=== PATIENT | female | born 1960 | race Caucasian/White ===

== ENCOUNTER 2016-07-03 11:00 | Inpatient (IN) | payer MEDICARE, MEDICAID ==
[~2016-07-03] VITALS: Ht 157.5 cm; Wt 118.9 kg
--- NOTE | ~2016-07-03 | OR ---
PATIENT'S NAME: S[facility]Y [facility] AGE: 55 Y [address] ROOM: [address] [address] LOCATION: [facility] ADMIT DATE: 07/25/2016 OR/Procedure Report DISCHARGE DATE: FAMILY PHYSICIAN: Torri Bills MD ATTENDING PHYSICIAN: Ulises Ruggiero SURGEON: Ulises Ruggiero MD TALENT ACQUISITION OPERATIONS MANAGER: DATE OF PROCEDURE: 07/25/2016 PREOPERATIVE DIAGNOSIS: Osteoarthritis, right knee. POSTOPERATIVE DIAGNOSIS: Osteoarthritis, right knee. OPERATION: Cemented tricompartmental total knee replacement with custom iTotal components and a 32 mm patellar button. ANESTHESIA: Subarachnoid block. INDICATIONS: This is a 55-year-old female with clinical and radiographic evidence of varus osteoarthritis of the right knee, who was no longer getting relief from non-operative treatment. DESCRIPTION OF PROCEDURE: The patient was brought to the operating room and when a satisfactory spinal anesthesia had been established, her right lower extremity was prepped and draped in an aseptic manner. The skin overlying the incision was injected with Sudeep mix and an anterior incision made and carried down through the subcutaneous fat. The quadriceps were injected with Sudeep mix and as was the medial capsule. The quadriceps splitting approach was then utilized such that the patella could be dislocated laterally. Bleeding was controlled with the Aquamantys. The patella was measured at 22 mm and cut down to 15 mm. The 32 mm patellar button appeared to fit the best and the 3 fixation holes were drilled. The cut surface of the patella was covered with a metal plate. The distal femur was exposed and the F1 jig positioned and it appeared to fit well. Subchondral bone was exposed and the F2 and F3 jigs were placed. The provisional fixation holes were drilled in the F2 jig and the F3 cutting block was pinned in place. The distal femoral cut was made using the reciprocating saw for the offset and the sagittal saw for the distal femoral cut. Flatness was checked at the T2 and F4 was pinned onto the distal femur. The anterior femoral cut was made and it was satisfactory, so the posterior femoral and anterior chamfer chapter cuts were made and the 2 lug holes were drilled for the femoral component. The F5 block was impacted home and the 2 posterior femoral chamfer cuts were made on each posterior femoral condyle. The tibia articular surface was then exposed and the subchondral bone exposed. The T1 jig was fitted onto the tibia and pinned in place. The tibial cut was made. Posterior capsule was then injected with Sudeep mix and PATIENT'S NAME: SONY [facility] AGE: 55 Y [address] ROOM: [address] [address] LOCATION: [facility] ADMIT DATE: 07/25/2016 OR/Procedure Report DISCHARGE DATE: FAMILY PHYSICIAN: Torri Bills MD ATTENDING PHYSICIAN: Ulises Ruggiero Aquamantys used for hemostasis. The T2 block was placed and the knee extended fully, so the M6LA tibial template was positioned on the cut surface of the tibia and pinned in place, and the centering hole drilled through the bushing, and the plunger impacted home. A trial reduction was performed with M6LA and the trial femoral component and the knee extended fully and was stable to varus and valgus stressing. Cut bony surfaces were irrigated and dried while cement was mixed. The tibial tray was cemented into place 1st and excess cement removed while soft with a [place] elevator. The M6 and LA spacers were impacted home. The femoral and patellar components were then cemented into place and excess cement removed while soft with a [place] elevator and with an osteotome and mallet once it was set. When the cement had set, the knee was taken through range of motion and the patella tracked well without any thumb pressure. The knee was stable to varus and valgus stressing and extended fully. The wound was irrigated copiously with saline and closed in layers using a running #1 Vicryl for the quadriceps tendon. The medial capsule was closed with a running #1 Vicryl. The subcutaneous fat was closed with running 2-0 Vicryl and the skin closed with skin shyla. Dressings were applied and the patient sent to the recovery area having tolerated the procedure well. MD PAULO LIMA/kvng /[id number] d: 07/25/16 1339 t: 08/01/16 0953, OPERATIVE SUMMARY
[~2016-07-03 11:00] MED LIST: AMBIEN5 MG PO; ASPIRIN EC81 MG PO; CALCIUM 600 +1 EAC5 PO; CATAPRES0.1 MG PO; CLARITIN10 MG PO; DITROPAN XL15 MG PO; FLONASE 50 MCG/16 GM NOSE; K-TAB ER20 MEQ PO; LASIX40 MG PO; LEXAPRO20 MG PO; LIPITOR20 M1 PO; MOBIC15 MG PO; MOTRIN600 MG PO; NORVASC5 MG PO; PRILOSEC20 MG PO; PROVENTIL OR V6.7 GM INH; VOLTAREN 1% GE100 GM TOP; XANAX0.5 MG PO
--- NOTE | 2016-07-25 18:43 | NUR ---
Significant Event: BACK AT 1030, CSM GOOD TO RIGHT LEG. HAD BLOCK IN KNEE. RACH WRAP D/I. HAD DILAUDID 2 MG TAB X2 LAST AT 1430...HAS COPD AND SLEEP APNEA HISTOURY, RT AWARE OF THIS. HAS BEEN TO COMMODE VOIDED X1... Follow up:
--- NOTE | 2016-07-26 04:43 | NUR ---
POD#1 RIGHT TKA, DSG CHANGED AT HS DUE TO INCONTINENCE, MELIPEX MARKED AND RACH WRAP APPLIED, GOOD CSMS, UP WITH SBA/FWW/GAIT BELT, LFA PIV SALINE LOCKED, VS WNL, PAIN CONTROLLED WITH DILAUDID LD@0300 AND WILL REASSESS BEFORE SHIFT CHANGE, ETCO2 ON ALL NIGHT DUE TO HX OF SLEEP APNEA AND REMAINED ON 1L PER NC THRU THE NIGHT TO MAINTAIN SATS OVER 90%, FAMILY IN ROOM. DC HOME ON DISCHARGE.
[2016-07-26 05:43] LABS: HEMATOCRIT 34.8 % (33.0-46.0); HEMOGLOBIN 11.3 g/dL (10.0-15.0)
--- NOTE | 2016-07-26 11:00 | NUR ---
Introduced self/role to patient and her significant other Gautam. Plan is to return home. Does not think she will need anything. Listed off all the DME they already have. Gautam will be around to assist her and she has a son. Added my name to the marker board. Will continue to follow.
[2016-07-26] MEDS ORDERED: ECOTRIN325 MG PO (14:56)
[2016-07-26] MEDS ORDERED: COLACE100 MG PO (14:59)
[2016-07-26] MEDS ORDERED: NICODERM / HABIT7 MG TRANS (15:05)
[2016-07-26] MEDS ORDERED: MIRALAX17 GM PO (15:08)
[2016-07-26] MEDS ORDERED: VALIUM5 MG PO (15:12)
[2016-07-26] MEDS ORDERED: "\\\"PREP SPRAY\\\"-TIN4 OZ" (15:12)
[2016-07-26] MEDS ORDERED: DILAUDID 2MG(HYD2 MG PO ×2 (15:13→15:14)
--- NOTE | 2016-07-26 15:46 | NUR ---
Dismissal Instructions: Ambulates with SBA and walker. Dressing changed by Den TORRE this am, C/D/I at this time. Ice at all times. Voids without difficulty. IV d/cd. CSM WNL. Dilaudid 2 mg at 1534, Tylenol 1000mg at 1052, Valium 2.5 mg at 1230. Tatiana education given with dismissal instructions, patient and state understanding. Dismissed to home.
== END 2016-07-26 15:50 | disposition disaster alternative care site (69) | DRG 470 ==
LOC: EDSTATUS 11:00 → G3N 11:00
PROVIDERS: ADMIT Orthopaedic Surgery
PROC: 0SRC0J9 Replacement of Right Knee Joint with Synthetic Substitute, Cemented, Open Approach (ICD-10-PCS; principal; 2016-07-25)
DX: M17.11 Unilateral primary osteoarthritis, right knee (principal); Z68.42 Body mass index [BMI] 45.0-49.9, adult; I10 Essential (primary) hypertension; F17.210 Nicotine dependence, cigarettes, uncomplicated; J44.9 Chronic obstructive pulmonary disease, unspecified; Z85.3 Personal history of malignant neoplasm of breast; G47.33 Obstructive sleep apnea (adult) (pediatric); K21.9 Gastro-esophageal reflux disease without esophagitis; Z85.43 Personal history of malignant neoplasm of ovary; F41.9 Anxiety disorder, unspecified; F32.9 Major depressive disorder, single episode, unspecified; N39.3 Stress incontinence (female) (male); Z71.6 Tobacco abuse counseling; E66.01 Morbid (severe) obesity due to excess calories
CPT/HCPCS: A9270; C1713; C1776; J0171; J0690; J0735; J1885; J2001; J2795; J7040; J7120

== ENCOUNTER → 2016-07-05 | Outpatient (CLI) | payer MEDICARE, MEDICAID ==
[~2016-07-05] MED LIST changes: +"\\\"PREP SPRAY\\\"-TIN4 OZ"; +COLACE100 MG PO; +DILAUDID 2MG(HYD2 MG PO; +ECOTRIN325 MG PO; +MIRALAX17 GM PO; +NICODERM / HABIT7 MG TRANS; +VALIUM5 MG PO
== END | disposition disaster alternative care site (69) ==
LOC: GNJRC 10:31
DX: Z01.818 Encounter for other preprocedural examination (principal)